=== PATIENT | female | born 1990 | race Caucasian/White ===

== ENCOUNTER 2016-11-04 07:18 | Day surgery (SDC) | payer OTHER ==
[~2016-11-04] VITALS: Ht 170.2 cm; Wt 60.9 kg
[~2016-11-04 07:18] MED LIST: ASCORBIC ACID500 M3 PO; CLONAZEPAM0.5 MG PO; FLOVENT 11120 INHALA IH; HYDROCODONE APA; IBUPROFEN800 MG PO; MOTRIN800 MG PO; PRENATAL MULTI1 EAC3 PO; PRENATAL TABLE1 EAC3 PO; VENTOLIN HFA18 GM IH; [UNRECOGNIZED DRUG - REMARK]
[2016-11-04 07:43] LABS: HEMATOCRIT 37.9 % (36.0-46.0); MCH 31.2 PG (29.0-34.0); MCHC 34.3 G/DL (30.0-36.0); MCV 90.9 FL (83-99); MEAN PLAT.VOLUME 10.6 uM^3 (9.5-12.4); PLATELET COUNT 217 K/uL (156-360); RBC DIS.WIDTH-CV 12.6 % (11.8-14.6); RBC DIS.WIDTH-SD 41.8 % (39-53); RED BLOOD COUNT 4.17 M/uL (3.80-5.20); WHITE BLOOD COUNT 9.7 K/uL (4.1-10.2)
[2016-11-04 07:59] LABS: ADD MIUA? NO; BILIRUBIN NEGATIVE; BLOOD NEGATIVE; COLOR YELLOW ((YELLOW)); GLUCOSE (STRIP) NEGATIVE; KETONES NEGATIVE; LEUKOCYTES NEGATIVE; NITRITE NEGATIVE; PROTEIN (STRIP) NEGATIVE; SPECIFIC GRAVITY 1.013 (1.000-1.030); UROBILINOGEN 0.2 MG/DL (0.2-1.0)
[2016-11-04 08:14] LABS: ALKALINE PHOSPHATASE 55 IU/L (3-129); ANION GAP 8 MEQ/L (2-14); CHLORIDE 109 MEQ/L (99-109); GFR ESTIMATE (CALCULATED) > 59 mL/min/; GLUCOSE 92 mg/dL (70-99); LIPASE 44 U/L (1.0-51.0); SAMPLE HEMOLYSIS CHECK 0; SAMPLE ICTERIC CHECK 0; SAMPLE LIPEMIA CHECK 0; SODIUM 140 MEQ/L (136-147); TOTAL BILIRUBIN 0.6 MG/DL (0.0-1.0); UREA NITROGEN (BUN) 11 mg/dL (9-23)
[2016-11-04 08:19] LABS: QUANTITATIVE HCG < 4.0 MIU/ML
[2016-11-04] MEDS ORDERED: MOTRIN IB200 MG PO (12:06)
[2016-11-04 16:00] VITALS: BP 97/60
[2016-11-04 19:23] VITALS: BP 92/53
[2016-11-04 22:17] VITALS: BP 97/52
[2016-11-05 03:30] VITALS: BP 92/54
[2016-11-05 07:05] VITALS: BP 111/75
[2016-11-05 07:31] LABS: EOSINOPHIL (%) 0.1 % (0-5); HEMATOCRIT 32.7 % (36.0-46.0); IMMATURE GRANULOCYTE (%) 0.7 % (0.0-0.7); IMMATURE GRANULOCYTE COUNT 0.1 K/uL; INSTRUMENT ABS NEUTROPHIL CT 11.5 K/uL; LYMPHOCYTE COUNT 1.5 K/uL (1.0-2.8); MCH 31.1 PG (29.0-34.0); MCHC 33.3 G/DL (30.0-36.0); MCV 93.2 FL (83-99); MEAN PLAT.VOLUME 11.3 uM^3 (9.5-12.4); MONOCYTE (%) 8.1 % (3-12); MONOCYTE COUNT 1.2 K/uL (0-0.8); NEUTROPHIL (%) 80.3 % (45-76); NEUTROPHIL COUNT 11.5 K/uL (1.8-6.4); PLATELET COUNT 191 K/uL (156-360); RBC DIS.WIDTH-CV 12.8 % (11.8-14.6); RBC DIS.WIDTH-SD 43.9 % (39-53); RED BLOOD COUNT 3.51 M/uL (3.80-5.20); WHITE BLOOD COUNT 14.3 K/uL (4.1-10.2)
[2016-11-05 07:38] LABS: ALKALINE PHOSPHATASE 51 IU/L (3-129); ANION GAP 7 MEQ/L (2-14); CHLORIDE 110 MEQ/L (99-109); GFR ESTIMATE (CALCULATED) > 59 mL/min/; GLUCOSE 84 mg/dL (70-99); POTASSIUM 4.2 MEQ/L (3.7-5.4); SAMPLE HEMOLYSIS CHECK 0; SAMPLE ICTERIC CHECK 0; SAMPLE LIPEMIA CHECK 0; SODIUM 140 MEQ/L (136-147); UREA NITROGEN (BUN) 12 mg/dL (9-23)
[2016-11-05 07:39] LABS: TOTAL BILIRUBIN 0.8 MG/DL (0.0-1.0)
[2016-11-05] MEDS ORDERED: ZOFRAN4 MG PO (10:41)
[2016-11-05] MEDS ORDERED: PERCOCET 5/31 TABLET PO (10:41)
[2016-11-05 12:07] VITALS: BP 102/55
[2016-11-05] MEDS ORDERED: PROMETHAZINE HC25 M1 PO (14:42)
== END 2016-11-05 14:57 | disposition home or self-care (01) ==
LOC: EME 07:18 → SDC 13:01 → 2SOUTH 15:14 → 2EAST 15:14 → 2SOUTH 15:14 → ENRESERV 15:17 → 2EAST 16:00
PROVIDERS: Nurse Practitioner Family; Surgery
DX: K80.12 Calculus of gallbladder with acute and chronic cholecystitis without obstruction (principal); K42.9 Umbilical hernia without obstruction or gangrene; J45.909 Unspecified asthma, uncomplicated; F41.9 Anxiety disorder, unspecified; Z88.0 Allergy status to penicillin; R10.10 Upper abdominal pain, unspecified; F17.200 Nicotine dependence, unspecified, uncomplicated
CPT/HCPCS: 74020; 74177; 80053; 81003; 83690; 84702; 85025; 85027; 88304; 99281; 99285; C1769; G0378; J0330; J0696; J1100; J1170; J1885; J2250; J2405; J2710; J2765; J3010; J7030; J7050; J7120; Q0169

== ENCOUNTER 2016-11-27 08:40 | Emergency (ER) | payer OTHER ==
[~2016-11-27] VITALS: Ht 170.2 cm; Wt 110.0 kg
[~2016-11-27 08:40] MED LIST changes: +MOTRIN IB200 MG PO; +PERCOCET 5/31 TABLET PO; +PROMETHAZINE HC25 M1 PO; +ZOFRAN4 MG PO
[2016-11-27 09:29] LABS: HEMATOCRIT 40.3 % (36.0-46.0); MCH 30.8 PG (29.0-34.0); MCV 90.6 FL (83-99); MEAN PLAT.VOLUME 10.8 uM^3 (9.5-12.4); PLATELET COUNT 236 K/uL (156-360); RBC DIS.WIDTH-CV 12.2 % (11.8-14.6); RBC DIS.WIDTH-SD 40.3 % (39-53); WHITE BLOOD COUNT 6.6 K/uL (4.1-10.2)
[2016-11-27 09:30] LABS: RED BLOOD COUNT 4.45 M/uL (3.80-5.20)
[2016-11-27 09:37] LABS: CHLORIDE 110 mEq/L (99-109); POTASSIUM 4.3 mEq/L (3.7-5.4); SODIUM 142 mEq/L (136-147)
[2016-11-27 09:39] LABS: GLUCOSE 91 mg/dL (70-99)
[2016-11-27 09:41] LABS: ANION GAP 9 MEQ/L (2-14)
[2016-11-27 09:43] LABS: GFR ESTIMATE (CALCULATED) > 59 mL/min/
[2016-11-27 09:44] LABS: UREA NITROGEN (BUN) 13 mg/dL (9-23)
[2016-11-27 09:47] LABS: TROP-I INTERPRETATION NEGATIVE; TROPONIN-I < 0.01 ng/mL (0.0-0.30)
[2016-11-27 09:52] LABS: QUANTITATIVE HCG < 4.0 MIU/ML
[2016-11-27 11:36] VITALS: BP 111/85
== END 2016-11-27 12:16 | disposition home or self-care (01) ==
LOC: EME 08:40
PROVIDERS: Nurse Practitioner Family
DX: R07.9 Chest pain, unspecified (principal); J45.909 Unspecified asthma, uncomplicated; F17.210 Nicotine dependence, cigarettes, uncomplicated; Z90.49 Acquired absence of other specified parts of digestive tract
CPT/HCPCS: 71020; 71275; 80048; 84484; 84702; 85027; 85379; 93005; 99281; 99284

== ENCOUNTER → 2017-04-04 | Outpatient (CLI) | payer OTHER ==
[~2017-04-04] VITALS: Ht 170.2 cm; Wt 48.1 kg
[~2017-04-04] MED LIST changes: +B-COMPLEX-VITA1 EACH PO; +CHOLINE PO; +MULTI-VITAMIN1 EAC4 PO; +ZANTAC150 MG PO; +[UNRECOGNIZED DRUG - REMARK] PO
== END | disposition home or self-care (01) ==
LOC: AMB 12:52
PROVIDERS: Internal Medicine
DX: R11.0 Nausea (principal); Z90.49 Acquired absence of other specified parts of digestive tract; F17.210 Nicotine dependence, cigarettes, uncomplicated; D64.9 Anemia, unspecified; F41.9 Anxiety disorder, unspecified; K21.9 Gastro-esophageal reflux disease without esophagitis; J45.909 Unspecified asthma, uncomplicated; E55.9 Vitamin D deficiency, unspecified; Z88.8 Allergy status to other drugs, medicaments and biological substances; Z88.1 Allergy status to other antibiotic agents; Z88.0 Allergy status to penicillin
CPT/HCPCS: 82948; 88305; 88342 TC; J2250; J2765

== ENCOUNTER → 2017-04-18 | Outpatient (CLI) | payer OTHER | END | disposition home or self-care (01) | LOC: NUC 06:59 | DX: R11.0 Nausea (principal); R63.4 Abnormal weight loss | CPT/HCPCS: 78264; A9541 ==

== ENCOUNTER 2017-07-16 04:50 | Emergency (ER) | payer OTHER ==
[~2017-07-16] VITALS: Ht 170.2 cm; Wt 48.7 kg
[2017-07-16 05:38] LABS: ALBUMIN 4.3 g/dL (3.2-4.8)
[2017-07-16 05:41] LABS: GLUCOSE 90 mg/dL (70-99); TOTAL PROTEIN 6.5 g/dL (6.4-8.3)
[2017-07-16 05:43] LABS: HEMATOCRIT 35.2 % (36.0-46.0); HEMOGLOBIN 12.4 G/DL (11.9-15.5); MCHC 35.2 G/DL (30.0-36.0); PLATELET COUNT 213 K/uL (156-360); RBC DIS.WIDTH-CV 12.5 % (11.8-14.6); RBC DIS.WIDTH-SD 41.3 % (39-53); RED BLOOD COUNT 3.87 M/uL (3.80-5.20); TOTAL BILIRUBIN 0.7 mg/dL (0.0-1.0); WHITE BLOOD COUNT 7.8 K/uL (4.1-10.2)
[2017-07-16 05:44] LABS: ALKALINE PHOSPHATASE 55 IU/L (3-129)
[2017-07-16 05:45] LABS: CREATININE 0.8 mg/dL (0.6-1.3); GFR ESTIMATE (CALCULATED) > 59 mL/min/
[2017-07-16] MEDS ORDERED: OMEPRAZOLE40 M1 PO (05:45)
[2017-07-16 05:46] LABS: AST (GOT) 13 IU/L (2-34); UREA NITROGEN (BUN) 15 mg/dL (9-23)
[2017-07-16 05:47] LABS: ALT (GPT) 16 IU/L (3-49)
[2017-07-16 05:48] LABS: LIPASE 43 U/L (1.0-51.0)
[2017-07-16 05:55] LABS: QUANTITATIVE HCG < 4.0 MIU/ML
[2017-07-16] MEDS ORDERED: ZANTAC150 MG PO (06:01)
[2017-07-16 06:10] VITALS: BP 101/58
[2017-07-16 06:12] LABS: POTASSIUM 3.7 mEq/L (3.7-5.4); SODIUM 141 mEq/L (136-147)
[2017-07-16 06:55] LABS: CHLORIDE 109 mEq/L (99-109)
== END 2017-07-16 06:11 | disposition home or self-care (01) ==
LOC: EME 04:50
PROVIDERS: Physician Assistant
DX: R10.10 Upper abdominal pain, unspecified (principal); J45.909 Unspecified asthma, uncomplicated; F41.9 Anxiety disorder, unspecified; Z90.49 Acquired absence of other specified parts of digestive tract; Z87.891 Personal history of nicotine dependence; Z88.0 Allergy status to penicillin; Z88.6 Allergy status to analgesic agent; Z88.5 Allergy status to narcotic agent
CPT/HCPCS: 80053; 83690; 84702; 85027; 99281; 99283